=== PATIENT | male | born 1995 | race Caucasian/White ===

== ENCOUNTER 2019-03-04 16:30 | Emergency (ER) | payer BC ==
[2019-03-04 16:46] VITALS: BP 138/90; PULSE 94; TEMP 97.8; BMI 25.7
[2019-03-04] MEDS ORDERED: AMOXICILLIN 500 MG CAPSULE (FP) PO ONE (16:55)
[2019-03-04] MEDS ORDERED: IBUPROFEN 400 MG TABLET (FP) PO ONE ×2 (16:55→16:59)
[2019-03-04] MEDS ORDERED: AMOXICILLIN 250 MG CAPSULE ONE (17:00)
--- NOTE | 2019-03-04 17:11 | PDOC ---
Documentation entered by Mare Anthony SCRIBE, acting as scribe for Vincenzo Harrison MD. Vincenzo Harrison MD: This documentation has been prepared by the Gabrielle conti Xhesika, SCRIBE, under my direction and personally reviewed by me in its entirety. I confirm that the documentation accurately reflects all work, treatment, procedures, and medical decision making performed by me. History of Present Illness - General Chief Complaint: Ear Problem Stated Complaint: EAR PAIN History Source: Patient Exam Limitations: No Limitations - History of Present Illness Initial Comments: 03/04/19 17:06 The patient is a 23 year old male with no significant PMH of who presents to the emergency department for L ear pain since this morning. The patient reports plugged up ear x2 weeks after airplane flight. The patient denies fever, chills , cough, nausea, vomiting, diarrhea and constipation. Denies dysuria, frequency , urgency and hematuria. Allergies: NKDA Past History - Past Medical History Allergies/Adverse Reactions: Allergies Allergy/AdvReac Type Severity Reaction Status Date / Time No Known Allergies Allergy Verified 05/15/15 13:40 Home Medications: Ambulatory Orders Amoxicillin - [Amoxicillin 500mg Capsule -] 500 mg PO TID #30 capsule 03/04/19 Ibuprofen 800 mg PO QID PRN #20 tablet 03/04/19 - Immunization History Immunization Up to Date: Yes - Psycho Social/Smoking Cessation Hx Smoking History: Current every day smoker Have you smoked in the past 12 months: Yes Number of Cigarettes Smoked Daily: 7 'Breaking Loose' booklet given: 05/15/15 Hx Alcohol Use: Yes (social) Substance Use Type: None Review of Systems - Review of Systems Able to Perform ROS?: Yes Comments:: 03/04/19 17:07 GENERAL/CONSTITUTIONAL: No fever or chills. No weakness. HEAD, EYES, EARS, NOSE AND THROAT: No change in vision. No sore throat. +L ear pain. CARDIOVASCULAR: No chest pain or shortness of breath. RESPIRATORY: No cough, wheezing, or hemoptysis. GASTROINTESTINAL: No nausea, vomiting, diarrhea or constipation. GENITOURINARY: No dysuria, frequency, or change in urination. MUSCULOSKELETAL: No joint or muscle swelling or pain. No neck or back pain. SKIN: No rash NEUROLOGIC: No headache, vertigo, loss of consciousness, or change in strength/ sensation. ENDOCRINE: No increased thirst. No abnormal weight change. HEMATOLOGIC/LYMPHATIC: No anemia, easy bleeding, or history of blood clots. ALLERGIC/IMMUNOLOGIC: No hives or skin allergy. *Physical Exam - Vital Signs Last Vital Signs Temp Pulse Resp BP Pulse Ox 97.8 F 94 H 15 138/90 97 03/04/19 16:38 03/04/19 16:38 03/04/19 16:38 03/04/19 16:38 03/04/19 16:38 - Physical Exam Comments: 03/04/19 17:07 GENERAL: Awake, alert, and fully oriented, in no acute distress HEAD: No signs of trauma EYES: PERRLA, EOMI, sclera anicteric, conjunctiva clear ENT: + retracted and erythematous left TM. + mild inflammation of the L ear canal. hearing grossly normal, nares patent, oropharynx clear without exudates. Moist mucosa NECK: Normal ROM, supple, no lymphadenopathy, JVD, or masses LUNGS: Breath sounds equal, clear to auscultation bilaterally. No wheezes, and no crackles HEART: Regular rate and rhythm, normal S1 and S2, no murmurs, rubs or gallops ABDOMEN: Soft, nontender, normoactive bowel sounds. No guarding, no rebound. No masses EXTREMITIES: Normal range of motion, no edema. No clubbing or cyanosis. No cords, erythema, or tenderness NEUROLOGICAL: Cranial nerves II through XII grossly intact. Normal speech, normal gait SKIN: Warm, Dry, normal turgor, no rashes or lesions noted. Medical Decision Making - Medical Decision Making 03/04/19 17:08 Acute left ear pain beginning this morning. Has had "plugged up left ear" since long plane flight 2 weeks ago, but no pain. No URI symptoms. No allergies. Drum is erythematous and retracted. No perforation is seen. Analgesics and antibiotics were begun and instructions for ENT follow-up were given. Patient was more comfortable at discharge to follow-up as directed Discharge - Discharge Information Problems reviewed: Yes Clinical Impression/Diagnosis: Acute otalgia Qualifiers: Laterality: left Qualified Code(s): H92.02 - Otalgia, left ear Condition: Stable Disposition: HOME - Admission No - Additional Discharge Information Prescriptions: Amoxicillin - [Amoxicillin 500mg Capsule -] 500 mg PO TID #30 capsule Ibuprofen 800 mg PO QID PRN #20 tablet PRN Reason: Pain - Follow up/Referral Referrals: Deni Hagen MD [Staff Physician] - 3 days - Patient Discharge Instructions Patient Printed Discharge Instructions: Eustachian Tube Dysfunction, DI for Ear Pain-Adult - Post Discharge Activity
== END 2019-03-04 17:15 | disposition home or self-care (01) ==
LOC: FER 16:30
DX: H92.02 Otalgia, left ear (principal); F17.210 Nicotine dependence, cigarettes, uncomplicated
CPT/HCPCS: 99281-25